=== PATIENT | female | born 1985 | race African-American/Black ===

== ENCOUNTER 2021-01-26 13:45 | Emergency (ER) | payer MEDICAID ==
[~2021-01-26] VITALS: Ht 160 cm; Wt 61.0 kg
[2021-01-26] MEDS ORDERED: SODIUM CHLORIDE 0.9% 1,000 ML IV ONE (14:15)
[2021-01-26] MEDS ORDERED: LORAZEPAM 2MG/ML CPJ IV ONE (14:30)
[2021-01-26 15:31] LABS: BASOPHILS % 0.3 % (0.0-2.0); EOSINOPHILS % 0.9 % (0.0-5.0); HEMATOCRIT. 33.5 % (36.0-48.0); HEMOGLOBIN. 11.2 g/dL (12.0-16.0); MEAN CORPUSCULAR HEMOGLOBIN 27.2 pg (28.0-32.0); MEAN CORPUSCULAR VOLUME 81.4 fL (81.0-99.0); MEAN PLATELET VOLUME 7.5 fl (7.4-10.4); MONOCYTES % 8.6 % (2.0-8.0); NEUTROPHILS % 71.2 % (40.0-76.0); PLATELET 368 x1000/uL (130-400); RED BLOOD CELL COUNT 4.11 mill/uL (4.2-5.4); RED CELL DISTRIBUTION WIDTH 13.3 % (11.6-14.6)
[2021-01-26 15:38] LABS: CHLORIDE 108 mEq/L (98-107)
[2021-01-26 15:42] LABS: ETHANOL BLOOD < 10 mg/dL
[2021-01-26] MEDS ORDERED: AMOX-424 MT (21:08)
[2021-01-27] MEDS ORDERED: AMOXICILLIN/POTASSIUM CLAVULANATE 875/125MG TAB PO ONE (09:00)
[2021-01-27 09:25] VITALS: BP 112/68
== END 2021-01-27 09:43 | disposition home or self-care (01) ==
LOC: ER 13:45
DX: S02.401A Maxillary fracture, unspecified side, initial encounter for closed fracture (principal); R45.1 Restlessness and agitation; R45.6 Violent behavior; X58.XXXA Exposure to other specified factors, initial encounter; Y93.89 Activity, other specified; Y92.89 Other specified places as the place of occurrence of the external cause; Y99.8 Other external cause status
CPT/HCPCS: 36415; 70450; 70486; 71045; 80053; 80320; 83690; 84484; 85025; 96361; 96374; 99285; J2060; J7030; G0480

== ENCOUNTER 2022-12-18 15:32 | Emergency (ER) | payer MEDICAID ==
[~2022-12-18] VITALS: Ht 167.6 cm; Wt 75.0 kg
[~2022-12-18 15:32] MED LIST: AMOX-424 MT
[2022-12-18 15:40] VITALS: BP 119/71
== END 2022-12-18 16:10 | disposition home or self-care (01) ==
LOC: ER 15:32
DX: Z00.00 Encounter for general adult medical examination without abnormal findings (principal)
CPT/HCPCS: 99283